=== PATIENT | female | born 1955 | race Two or more races ===

== ENCOUNTER → 2020-08-09 | Emergency (ER) | payer MEDICAID, OTHER ==
[~2020-08-09] VITALS: Ht 149.9 cm; Wt 63.5 kg
[2020-08-09 19:46] VITALS: BP 137/61
== END | disposition left against medical advice (07) ==
LOC: ER 19:44
DX: R10.84 Generalized abdominal pain (principal); Z53.21 Procedure and treatment not carried out due to patient leaving prior to being seen by health care provider